=== PATIENT | female | born 1995 ===

== ENCOUNTER 2016-12-07 19:49 | Emergency (ER) | payer OTHER ==
[2016-12-07] MEDS ORDERED: IUD BIRTH CONTROL (20:19)
[2016-12-07] MEDS ORDERED: TRAMADOL HCL50 M2 PO (21:41)
== END 2016-12-07 21:51 ==
LOC: EDMED 19:49
DX: S39.012A Strain of muscle, fascia and tendon of lower back, initial encounter (principal); Z88.2 Allergy status to sulfonamides; Z98.890 Other specified postprocedural states; V49.40XA Driver injured in collision with unspecified motor vehicles in traffic accident, initial encounter; Y92.410 Unspecified street and highway as the place of occurrence of the external cause
CPT/HCPCS: J1885